=== PATIENT | female | born 1960 | race Caucasian/White ===

== ENCOUNTER → 2016-09-21 | Outpatient (CLI) | payer OTHER, MEDICARE ==
[~2016-09-21] MED LIST: ADVIL200 MG OR; AMBIEN CR12.5 MG PO; AMOXICILLIN875 MG PO; ANTIPYRINE-BENZOCAIN OT; BACTRIM 400 MG-1 TAB PO; CALTRATE 600+D1 TAB PO; CENTRUM SILVER1 TAB PO; FAMCICLOVIR250 MG PO; IMIPRAMINE HCL25 MG OR; LISINOPRIL 10MG10 MG NG; MACRODANTIN50 MG PO; MIRAPEX PO; POLY IRON PO; PRILOSEC20 M1 PO; SANCTURA XR60 MG PO; SERTRALINE 100100 MG PO; SIMVASTATIN80 MG PO; TECFIDERA240 M1 PO; ULTRAM 50 MG TA50 MG PO; VERAPAMIL PO; VITAMIN D31000 IU PO
== END ==
LOC: COP 09:23
DX: Z45.2 Encounter for adjustment and management of vascular access device (principal)

== ENCOUNTER 2017-05-03 12:25 | Outpatient (CLI) | payer OTHER, MEDICARE | END 2017-05-03 12:40 | disposition home or self-care (01) | LOC: COP 12:25 | DX: Z45.2 Encounter for adjustment and management of vascular access device (principal) | CPT/HCPCS: J1642 ==

== ENCOUNTER 2017-06-16 09:10 | Outpatient (CLI) | payer OTHER, MEDICARE ==
[~2017-06-16] VITALS: Ht 157.5 cm; Wt 72.6 kg
[2017-06-16 09:50] VITALS: BP 155/95
[2017-06-16 10:25] VITALS: BP 167/93
== END 2017-06-16 10:45 | disposition home or self-care (01) ==
LOC: COP 09:10
DX: E61.1 Iron deficiency (principal)
CPT/HCPCS: J1642; J1756

== ENCOUNTER 2017-06-23 11:07 | Outpatient (CLI) | payer OTHER, MEDICARE ==
[2017-06-23 11:35] VITALS: BP 161/92
[2017-06-23] MEDS ORDERED: MACRODANTIN100 MG PO (11:37)
[2017-06-23 11:55] VITALS: BP 158/87
[2017-06-23 12:16] VITALS: BP 154/87
== END 2017-06-23 12:20 | disposition home or self-care (01) ==
LOC: COP 11:07
DX: E61.1 Iron deficiency (principal)
CPT/HCPCS: J1642; J1756

== ENCOUNTER 2017-06-29 10:14 | Outpatient (CLI) | payer OTHER, MEDICARE ==
[~2017-06-29 10:14] MED LIST changes: +MACRODANTIN100 MG PO
[2017-06-29] MEDS ORDERED: NEURONTIN 100100 MG PO (10:37)
[2017-06-29 10:47] VITALS: BP 132/86
[2017-06-29 11:30] VITALS: BP 167/91
[2017-06-29 12:05] VITALS: BP 162/86
== END 2017-06-29 12:10 | disposition home or self-care (01) ==
LOC: COP 10:14
DX: E61.1 Iron deficiency (principal)
CPT/HCPCS: J1642; J1756

== ENCOUNTER 2017-07-07 11:10 | Outpatient (CLI) | payer OTHER, MEDICARE ==
[~2017-07-07 11:10] MED LIST changes: +NEURONTIN 100100 MG PO
[2017-07-07 11:31] VITALS: BP 140/75
[2017-07-07 11:50] VITALS: BP 139/75
[2017-07-07 12:10] VITALS: BP 141/78
[2017-07-07] MEDS ORDERED: VERAPAMIL SR 2240 MG PO (12:44)
== END 2017-07-07 12:15 | disposition home or self-care (01) ==
LOC: COP 11:10
DX: E61.1 Iron deficiency (principal)
CPT/HCPCS: J1642; J1756